=== PATIENT | male | born 1970 | race Caucasian/White ===

== ENCOUNTER 2017-10-13 16:16 | Emergency (ER) | payer BC ==
[~2017-10-13] VITALS: Ht 193 cm; Wt 157.8 kg
--- NOTE | ~2017-10-13 | EKG ---
[address] [address] [place] [address] ELECTROCARDIOGRAM REPORT Name: NANNETTE MALCOLM Room #: DEP Esther#: [id number] Admission: 10/13/17 Attend Phys: Discharge: 10/13/17 Date of : 70 Report #: [id number] THIS REPORT FOR: //name// [facility] ED Test Date: 2017-10-13 Test Time: 16:27:14 Pat Name: NANNETTE MALCOLM Department: Room: Gender: Healthcare Consulting Manager: aj : 1970 Requested By: Marques Sotomayor Order Number: [id number] MD: Tom Wolfe Measurements Intervals [place] Rate: 79 P: -20 AL: 141 QRS: 0 QRSD: 106 T: 9 QT: 393 QTc: 451 Interpretive Statements Sinus rhythm Normal tracing No previous ECG available for comparison Electronically Signed On 10-13-2017 16:55:16 CDT by Tom Wolfe Electronically Signed On 10-14-2017 8:25:54 CDT by Tom Wolfe [email or web address] <ELECTRONICALLY SIGNED> By: Tom Wolfe MD, [facility] 10/14/17 0825 1627 162 Tom Wolfe MD, [facility] /EPI
[2017-10-13 17:08] LABS: ABSOLUTE NEUTROPHILS 6.3 thou/uL (1.4-8.2); BASOPHILS 0.3 % (0.0-2.0); EOSINOPHILS 0.3 % (0.0-3.0); HEMATOCRIT 42.4 % (42.0-52.0); HEMOGLOBIN 14.5 gm/dL (14.0-18.0); LYMPHOCYTES 17.5 % (24.0-44.0); MCHC 34.2 g/dL (28.0-37.0); MCV 90.9 fL (80.0-100.0); PLATELET COUNT 226 thou/uL (150-400); POLYS 74.9 % (36.0-66.0); RBC 4.67 mil/uL (4.50-6.00); RDW 13.5 % (10.5-14.5); WBC 8.4 thou/uL (4.0-11.0)
[2017-10-13 17:12] LABS: ANION GAP 9 mmol/L (7-16); BUN 12 mg/dL (7-18); CALCIUM 9.4 mg/dL (8.5-10.1); CHLORIDE 101 mmol/L (98-107); CO2 28 mmol/L (21-32); CREATININE 0.7 mg/dL (0.7-1.3); GLUCOSE 101 mg/dL (74-106); POTASSIUM 3.5 mmol/L (3.5-5.1); SODIUM 138 mmol/L (136-145)
[2017-10-13] MEDS ORDERED: DOXYCYCLINE 10100 MG PO (17:17)
[2017-10-13] MEDS ORDERED: OMEPRAZOLE 20 M20 M1 PO (17:17)
[2017-10-13] MEDS ORDERED: ASPIRIN325 PO (17:17)
[2017-10-13 17:21] LABS: TROPONIN-I <0.06 ng/mL (<0.06)
[2017-10-13 19:17] VITALS: BP 103/65
== END 2017-10-13 19:19 | disposition home or self-care (01) ==
LOC: ER 16:16
PROVIDERS: Emergency Medicine
DX: R07.9 Chest pain, unspecified (principal); E66.9 Obesity, unspecified; Z68.41 Body mass index [BMI] 40.0-44.9, adult

== ENCOUNTER → 2017-10-31 | Outpatient (CLI) | payer BC ==
[~2017-10-31] MED LIST: ASPIRIN325 PO; DOXYCYCLINE 10100 MG PO; OMEPRAZOLE 20 M20 M1 PO
--- NOTE | ~2017-10-31 | 2DMMODE ---
[facility] [address] [place] [address] 2 D/M-MODE ECHOCARDIOGRAM Name: ALYSE DORISNANNETTE Room #: REG CL Esther#: [id number] Admission: 10/31/17 Attend Phys: Amaury Perez Discharge: Date of : 70 Date of Service: 10/31/17 0909 Report #: [id number] THIS REPORT FOR: //name// APPROVED REPORT Study performed: 10/31/2017 07:43:54 EXAM: Comprehensive 2D, Doppler, and color-flow Echocardiogram Patient Location: Echo lab Status: routine BSA: 2.80 HR: 67 bpm BP: 155/94 mmHg Other Information Study Quality: Adequate Indications Chest Pain 2D Dimensions RVDd: 42.55 mm LVEF(%): 49.72 (>50%) IVSd: 11.84 (7-11mm) LVOT Diam: 22.04 (18-24mm) LVDd: 54.97 mm PWd: 10.52 (7-11mm) Ascending Ao: 33.01 (22-36mm) LVDs: 40.96 (25-40mm) Aortic Root: 32.98 mm IVC: 18.00 mm Calderón's LVEF: 49.72 % Volumes Left Atrial Volume (Systole) Single Plane 4CH: 40.40 mL Single Plane 2CH: 70.10 mL LA ESV Index: 22.00 mL/m2 Aortic Valve AoV Peak Brian.: 1.42 m/s AO Peak Gr.: 8.08 mmHg LVOT Max P.02 mmHg LVOT Max V: 1.00 m/s BAL Vmax: 2.69 cm2 Mitral Valve E/A Ratio: 1.5 MV Decel. Time: 197.81 ms MV E Max Brian.: 0.95 m/s [facility] [place] [address] 2 D/M-MODE ECHOCARDIOGRAM Name: NANNETTE MALCOLM Room #: [id number] Admission: 10/31/17 Attend Phys: Amaury Perez Discharge: Date of : 70 Date of Service: 10/31/17 0909 Report #: [id number] A Brian.: 0.63 m/s MV PHT: 57.36 ms IVRT: 93.43 ms Pulmonary Valve PV Peak Brian.: 1.11 m/s PV Peak Gr.: 4.92 mmHg Pulmonary Vein P Vein S: 0.48 m/s P Vein A: 0.35 m/s P Vein D: 0.62 m/s P Vein A Dur.: 121.1 msec P Vein S/D Ratio: 0.77 Tricuspid Valve TR Peak Brian.: 2.75 m/s RAP Estimate: 5.00 mmHg TR Peak Gr.: 30.34 mmHg PA Pressure: 35.00 mmHg Left Ventricle The left ventricle is normal size. There is normal left ventricular wall thickness. The left ventricular systolic function is normal. The left ventricular ejection fraction is within the normal range. LVEF is 55-60%. The left ventricular diastolic function is normal. Right Ventricle Right ventricle is mildly dilated. The right ventricular systolic function is normal. Atria The left atrium size is normal. The right atrium size is normal. Aortic Valve The aortic valve is normal in structure. No aortic regurgitation is present. There is no aortic valvular stenosis. Mitral Valve The mitral valve is normal in structure. Mild mitral regurgitation. No evidence of mitral valve stenosis. Tricuspid Valve The tricuspid valve is normal in structure. Trace to mild tricuspid regurgitation. PAP is estimated at 35 mmHg. Pulmonic Valve The pulmonary valve is normal in structure. Trace pulmonic regurgitation. [facility] [address] [place] [address] 2 D/M-MODE ECHOCARDIOGRAM Name: NANNETTE MALCOLM Room #: REG CL Esther#: [id number] Admission: 10/31/17 Attend Phys: Amaury Perez Discharge: Date of : 70 Date of Service: 10/31/17 0909 Report #: [id number] Great Vessels The aortic root is normal in size. IVC is normal in size and collapses >50% with inspiration. Pericardium There is no pericardial effusion. <Conclusion> The left ventricle is normal size. LVEF is 55-60%. Right ventricle is mildly dilated. The aortic valve is normal in structure. The mitral valve is normal in structure. Mild mitral regurgitation. The tricuspid valve is normal in structure. Trace to mild tricuspid regurgitation. PAP is estimated at 35 mmHg. The pulmonary valve is normal in structure. Trace pulmonic regurgitation. There is no pericardial effusion. <ELECTRONICALLY SIGNED> By: Amaury Holley MD 10/31/17908 8 8 Amaury Holley MD /INF
== END ==
LOC: CV 07:20
DX: I34.0 Nonrheumatic mitral (valve) insufficiency (principal)

== ENCOUNTER → 2020-01-29 | Outpatient (CLI) | payer OTHER | LOC: RAD 15:54 | PROVIDERS: ATTEND Family Medicine | DX: Z13.6 Encounter for screening for cardiovascular disorders (principal); I25.10 Atherosclerotic heart disease of native coronary artery without angina pectoris; E78.00 Pure hypercholesterolemia, unspecified ==